=== PATIENT | female | born 1995 | race Hispanic/Latino ===

== ENCOUNTER 2023-11-08 05:19 | Inpatient (IN) | payer OTHER ==
[2023-11-08] MEDS ORDERED: Famotidine/PF 20 mg/2ml Vial SLOW IVP PRN (05:51)
[2023-11-08] MEDS ORDERED: Bicitra 30 ML UDCUP PO PRN (05:52)
[2023-11-08] MEDS ORDERED: hydrALAZINE 20 MG/ML VIAL SLOW IVP PRN ×2 (06:00→12:17)
[2023-11-08] MEDS ORDERED: Ondansetron PF 4 MG/2 ML Vial IVP PRN ×2 (06:00→06:54)
[2023-11-08 06:12] VITALS: BMI 29.5
[2023-11-08 06:18] LABS: Hematocrit 36.9 % (34.9-44.5); Hemoglobin 13.1 g/dL (12.0-15.5); Mean Corpuscular HGB CONC 35.5 g/dL (32.0-36.0); Mean Corpuscular Hemoglobin 31.6 pg (27.0-33.0); Mean Corpuscular Volume 89.1 fL (81.6-98.3); Mean Platelet Volume 12.4 fL (7.4-10.4); Platelet Count 201 10x3/uL (150-450); RBC Distribution Width 13.7 % (11.5-14.5); Red Blood Cell (RBC) Count 4.14 10x6/uL (3.90-5.03)
[2023-11-08 06:50] LABS: HBsAg Index 0.19 S/CO (0-0.99); HIV (1/2) Antibody/Antigen Non-Reactive (NonReactive); HIV 1/2 INDEX 0.08 S/CO (<1.00); Hep B Surf Ag - L&D Non-Reactive S/CO (NonReactive)
[2023-11-08 06:51] LABS: Syphilis Antibody Nonreactive (Nonreactive); Syphilis Antibody Index 0.08 S/CO (<1.00 Non-Reactive)
[2023-11-08] MEDS ORDERED: Naloxone HCl 0.4 mg/ml Vial IVP PRN ×2 (06:54)
[2023-11-08] MEDS ORDERED: fentaNYL 50 mcg/mL 1 mL Vial SLOW IVP PRN (06:54)
[2023-11-08] MEDS ORDERED: diphenhydrAMINE 50 MG/ML VIAL IVP PRN (06:54)
[2023-11-08] MEDS ORDERED: Moisturizing Cream (Eucerin) 113 GM JAR TOP PRN (06:54)
[2023-11-08] MEDS ORDERED: Naloxone HCl 0.4 mg/ml Vial IV PRN (06:54)
[2023-11-08] MEDS ORDERED: Meperidine HCl/PF 25 MG (1 mL) VIAL SLOW IVP PRN (06:54)
[2023-11-08] MEDS ORDERED: HYDROmorphone 0.5 MG/0.5 ML SYRINGE SLOW IVP PRN (06:54)
[2023-11-08] MEDS ORDERED: Promethazine HCl 25 MG/ML VIAL IM PRN (06:54)
[2023-11-08] MEDS ORDERED: Ketorolac Tromethamine 30 MG (1 mL) VIAL IVP SCH (07:00)
[2023-11-08] MEDS ORDERED: Communication Order-Pharmacy FS SCH (07:00)
[2023-11-08] MEDS: Oxytocin 30 units/NS 500 ML 500 ML IVPB SCH (09:26)
[2023-11-08] MEDS: Ondansetron PF 4 MG/2 ML Vial IVP PRN (09:26)
[2023-11-08] MEDS: Ondansetron PF 4 MG/2 ML Vial ONE (09:26)
[2023-11-08] MEDS: Methylergonovine 0.2 MG/ML VIAL ONE (09:27)
[2023-11-08] MEDS: Oxytocin 10 UNITS/ML VIAL ONE (09:27)
[2023-11-08] MEDS: CEFAZOLIN 2 GM VIAL ONE (09:27)
[2023-11-08] MEDS: Morphine PF 10 MG/10 ML VIAL ONE (09:27)
[2023-11-08] MEDS: Carboprost 250 MCG/ML AMP ONE (09:27)
[2023-11-08] MEDS: fentaNYL 50 mcg/mL 1 mL Vial ONE (09:27)
[2023-11-08] MEDS: Dexamethasone 10 MG/ML VIAL ONE (09:28)
[2023-11-08] MEDS: Promethazine HCl 25 MG/ML VIAL IM PRN (10:08)
[2023-11-08] MEDS ORDERED: Misoprostol 200 MCG TAB PR PRN (12:17)
[2023-11-08] MEDS ORDERED: Acetaminophen 325 MG TAB PO PRN (12:17)
[2023-11-08] MEDS ORDERED: Oxytocin 30 units/NS 500 ML 500 ML IV SCH (12:17)
[2023-11-08] MEDS ORDERED: diphenhydrAMINE 25 MG CAP PO PRN (12:17)
[2023-11-08] MEDS ORDERED: Methylergonovine 0.2 MG/ML VIAL IM PRN (12:17)
[2023-11-08] MEDS ORDERED: Lanolin Ointment 7 GM TUBE TOP PRN (12:17)
[2023-11-08] MEDS: Boostrix 0.5 ML (Tdap) VIAL (>/=7 yrs of age) IM ONE (12:47)
[2023-11-08] MEDS: Ketorolac Tromethamine 30 MG (1 mL) VIAL IVP PRN (13:23)
[2023-11-08] MEDS ORDERED: HYDROcodone/Acetaminophen 5/325 mg Tablet PO PRN (19:00)
[2023-11-08] MEDS: Docusate 100 MG CAP PO SCH (20:05)
[2023-11-08] MEDS: Simethicone Chewable 80 MG TAB PO PRN (20:05)
[2023-11-08] MEDS: Ferrous Sulfate 325 MG TAB PO SCH (22:06)
[2023-11-09 04:57] LABS: Hemoglobin 9.4 g/dL (12.0-15.5); Mean Corpuscular HGB CONC 34.8 g/dL (32.0-36.0); Mean Corpuscular Hemoglobin 31.3 pg (27.0-33.0); Mean Platelet Volume 12.7 fL (7.4-10.4); Platelet Count 176 10x3/uL (150-450); RBC Distribution Width 13.6 % (11.5-14.5); White Blood Cell (WBC) Count 9.3 10x3/uL (3.5-10.5)
[2023-11-09] MEDS: HYDROcodone/Acetaminophen 5/325 mg Tablet PO PRN (08:09)
[2023-11-09] MEDS: Prenatal Vitamin 1 TAB PO SCH (08:09)
[2023-11-09] MEDS: Ibuprofen 800 MG TAB PO SCH (13:10)
[2023-11-11 07:30] VITALS: BP 114/64; TEMP 98.2
== END 2023-11-11 12:45 | disposition home or self-care (01) | DRG 787 ==
LOC: CSHLD 05:19 → CSHPP 10:58
PROVIDERS: ADMIT Family Medicine; ATTEND Family Medicine
PROC: 10D00Z1 Extraction of Products of Conception, Low, Open Approach (ICD-10-PCS; principal; 2023-11-08)
DX: O34.211 Maternal care for low transverse scar from previous cesarean delivery (principal); O44.03 Complete placenta previa NOS or without hemorrhage, third trimester; Z3A.36 36 weeks gestation of pregnancy; Z37.0 Single live birth
CPT/HCPCS: 36415; 51702; 85027; 86780; 86850; 86900; 86901; 87340; 87389; C1889; J1100; J1885; J2274; J2405; J2550; J2590; J3010